=== PATIENT | female | born 1995 | race Caucasian/White ===

== ENCOUNTER 2022-05-04 16:05 | Inpatient (IN) | payer OTHER ==
[~2022-05-04] VITALS: Ht 162.6 cm; Wt 111.1 kg
[2022-05-04 16:39] LABS: BASOPHILS % (AUTO) 0.3 % (0.0-2.0); EOSINOPHILS # (AUTO) 0.1 K/uL (0-0.4); EOSINOPHILS % (AUTO) 1.3 % (0.0-4.0); HEMATOCRIT 32.8 % (36-48); HEMOGLOBIN 11.1 g/dL (12.0-16.0); LYMPHOCYTES # (AUTO) 2.4 K/uL (2.5-16.5); LYMPHOCYTES % (AUTO) 21.1 % (20.5-51.1); MEAN CORPUSCULAR HEMOGLOBIN 28 pg (27-31); MEAN CORPUSCULAR HGB CONC 34 g/dL (33-37); MEAN CORPUSCULAR VOLUME 83.7 fL (80-94); MONOCYTES # (AUTO) 0.7 K/uL (0.8-1.0); MONOCYTES % (AUTO) 6.3 % (1.7-9.3); NEUTROPHILS # (AUTO) 8.2 K/uL (1.8-7.7); PLATELET COUNT (AUTO) 352 K/uL (140-450); RED BLOOD CELL COUNT(AUTO) 3.92 MIL/uL (4.20-5.40); RED CELL DISTRIBUTION WIDTH 15.3 % (11.6-13.7); WHITE BLOOD COUNT (AUTO) 11.5 K/uL (4.8-10.8)
[2022-05-04 16:39] LABS: APPEARANCE,URINE CLEAR (CLEAR); BILIRUBIN,URINE NEGATIVE (NEGATIVE); BLOOD, URINE NEGATIVE (NEGATIVE); COLOR,URINE YELLOW (YELLOW); LEUKOCYTE ESTERASE ,URINE NEGATIVE (NEGATIVE); NITRITE, URINE NEGATIVE (NEGATIVE); UGLUCOSE NEGATIVE (NEGATIVE)
[2022-05-04] MEDS ORDERED: PRETAB PO (16:54)
[2022-05-04] MEDS ORDERED: ACET-10509 PO (16:54)
[2022-05-04 16:55] VITALS: BP 117/58
[2022-05-04] MEDS ORDERED: LACTATED RINGERS 500 ML IV ONE (17:20)
[2022-05-04 17:29] LABS: PROTHROMBIN TIME 9.9 secs (10.8-13.4)
[2022-05-04] MEDS: MORPHINE SULFATE 10 MG/ML VIAL IVP PRN ×2 (17:42→21:00)
[2022-05-04] MEDS: ONDANSETRON 4 MG/2 ML VIAL IVP PRN (17:42)
[2022-05-04] MEDS ORDERED: LACTATED RINGERS 1,000 ML IV ONE (17:55)
[2022-05-04] MEDS ORDERED: NIFEdipine 10 MG CAPLF PO ONE (18:20)
[2022-05-04] MEDS ORDERED: MAG SULF 2000 MG/WATER PREMIX 100 ML IV ONE (18:20)
[2022-05-04] MEDS ORDERED: BETAMETH ACET/BETAMETH NA PH 30 MG/5 ML VIAL IM ONE (18:29)
[2022-05-04] MEDS: LACTATED RINGERS 1,000 ML IV SCH (18:30)
[2022-05-04 18:36] LABS: ALBUMIN 2.5 g/dL (3.4-5.0); ANION GAP 12.9 (8-16); CARBON DIOXIDE 25.7 mmol/L (21-32); CREATININE 0.6 mg/dL (0.6-1.3); MAGNESIUM 1.4 mg/dL (1.8-2.4); POTASSIUM 3.6 mmol/L (3.5-5.1); TOTAL BILIRUBIN 0.1 mg/dL (0.0-1.0)
[2022-05-04] MEDS ORDERED: BETAMETH ACET/BETAMETH NA PH 30 MG/5 ML VIAL IM SCH ×2 (19:05→21:00)
[2022-05-04] MEDS: MAG SULF 20 GM/H2O PREMIX DRIP 500 ML IV PRN (20:20)
[2022-05-04] MEDS ORDERED: MORPHINE SULFATE 5 MG/ML VIAL IVP PRN (22:30)
[2022-05-05] MEDS ORDERED: ROPIVACAINE 0.2%/NS PREMIX 200 ML EPI ONE ×4 (00:10→22:36)
[2022-05-05] MEDS: LACTATED RINGERS 1,000 ML IV SCH ×3 (00:54→13:46)
[2022-05-05] MEDS ORDERED: ALUMINUM HYD/MAG/SIMETHICONE 30 ML UDC PO PRN (01:15)
[2022-05-05] MEDS ORDERED: ACETAMINOPHEN 325 MG TAB ONE (04:46)
[2022-05-05] MEDS: ACETAMINOPHEN 325 MG TAB PO PRN (05:19)
[2022-05-05] MEDS: MAG SULF 20 GM/H2O PREMIX DRIP 500 ML IV PRN ×2 (06:10→15:51)
--- NOTE | 2022-05-05 06:40 | NUR ---
PATIENT HAS BEEN SCREENED AND CATEGORIZED LOW NUTRITION RISK. PATIENT WILL BE SEEN WITHIN 7 DAYS OF ADMISSION. 05/04/22-05/11/[address]
[2022-05-05] MEDS ORDERED: fentaNYL citrate 0.05 MG/ML VIAL ONE (09:23)
[2022-05-05] MEDS: ONDANSETRON 4 MG/2 ML VIAL IVP PRN (13:45)
[2022-05-05] MEDS: NIFEdipine 10 MG CAPLF PO SCH ×2 (13:48→19:42)
[2022-05-06] MEDS: NIFEdipine 10 MG CAPLF PO SCH (01:41)
[2022-05-06] MEDS: MAG SULF 20 GM/H2O PREMIX DRIP 500 ML IV PRN (02:27)
[2022-05-06] MEDS: ACETAMINOPHEN 325 MG TAB PO PRN (06:56)
[2022-05-06] MEDS: LACTATED RINGERS 1,000 ML IV SCH ×3 (08:26→19:07)
[2022-05-06] MEDS ORDERED: ROPIVACAINE 0.2%/NS PREMIX 200 ML EPI ONE (13:34)
[2022-05-06] MEDS ORDERED: ROPIVACAINE 0.2%/NS PREMIX 200 ML EPI SCH (16:10)
[2022-05-06] MEDS ORDERED: OXYTOCIN 20 UNITS in LACTATED RINGERS 1,000 ML IV SCH (19:25)
[2022-05-07] MEDS: LACTATED RINGERS 1,000 ML IV SCH ×3 (04:00→21:07)
[2022-05-07] MEDS ORDERED: OXYTOCIN 20 UNITS/LR PREMIX 1,000 ML IV ONE (16:27)
[2022-05-07 22:33] LABS: BASOPHILS % (AUTO) 0.7 % (0.0-2.0); EOSINOPHILS % (AUTO) 0.7 % (0.0-4.0); HEMATOCRIT 25.2 % (36-48); HEMOGLOBIN 7.9 g/dL (12.0-16.0); LYMPHOCYTES # (AUTO) 1.9 K/uL (2.5-16.5); LYMPHOCYTES % (AUTO) 33.2 % (20.5-51.1); MEAN CORPUSCULAR HEMOGLOBIN 21 pg (27-31); MEAN CORPUSCULAR HGB CONC 32 g/dL (33-37); MEAN CORPUSCULAR VOLUME 66.3 fL (80-94); MONOCYTES # (AUTO) 0.2 K/uL (0.8-1.0); MONOCYTES % (AUTO) 4.3 % (1.7-9.3); NEUTROPHILS # (AUTO) 3.5 K/uL (1.8-7.7); NEUTROPHILS % (AUTO) 61.1 % (42.2-75.2); PLATELET COUNT (AUTO) 264 K/uL (140-450); WHITE BLOOD COUNT (AUTO) 5.7 K/uL (4.8-10.8)
[2022-05-08] MEDS ORDERED: MORPHINE SULFATE 10 MG/ML VIAL ONE (00:29)
[2022-05-08 00:34] VITALS: BP 129/80
[2022-05-08] MEDS: ONDANSETRON 4 MG/2 ML VIAL IVP PRN (00:34)
[2022-05-08] MEDS: LACTATED RINGERS 1,000 ML IV SCH (14:39)
[2022-05-08] MEDS ORDERED: OXYTOCIN 20 UNITS/LR PREMIX 1,000 ML IV ONE (20:29)
[2022-05-08] MEDS ORDERED: MEASLES, MUMPS, AND RUBELLA 1 VIAL SQVAC ONE (20:30)
[2022-05-08] MEDS ORDERED: OXYTOCIN 10 UNITS/ML VIAL IM PRN (20:30)
[2022-05-08] MEDS ORDERED: METHYLERGONOVINE 0.2 MG TAB PO PRN (20:30)
[2022-05-08] MEDS ORDERED: BENZOCAINE/MENTHOL 20%-0.5% 60 GM CAN TP PRN (20:30)
[2022-05-08] MEDS ORDERED: METHYLERGONOVINE 0.2 MG/ML AMP IM PRN (20:30)
[2022-05-09] MEDS: IBUPROFEN 800 MG TAB PO PRN ×3 (04:20→21:05)
[2022-05-09 09:16] LABS: HEMATOCRIT 28.9 % (36-48); HEMOGLOBIN 9.5 g/dL (12.0-16.0)
[2022-05-09] MEDS ORDERED: bisacodyL 5 MG TABEC PO PRN (12:45)
[2022-05-09] MEDS ORDERED: HYDROcodone/APAP 5/325 MG 1 TAB TAB PO PRN (21:10)
[2022-05-10] MEDS: IBUPROFEN 800 MG TAB PO SCH ×2 (03:15→09:10)
[2022-05-10] MEDS ORDERED: FERR325E14 PO (10:02)
[2022-05-10] MEDS ORDERED: IBUP-2213 PO (10:02)
[2022-05-10] MEDS ORDERED: DOCU-299 PO (10:02)
== END 2022-05-10 11:27 | disposition home or self-care (01) | DRG 560 ==
LOC: OBSVTOIN 16:05 → MLD 16:05 → MFCC 05-08 23:36
PROVIDERS: ADMIT Obstetrics & Gynecology; ATTEND Obstetrics & Gynecology
PROC: 10E0XZZ Delivery of Products of Conception, External Approach (ICD-10-PCS; principal; 2022-05-08)
PROC: 0HQ9XZZ Repair Perineum Skin, External Approach (ICD-10-PCS; 2022-05-08)
PROC: 3E0R3BZ Introduction of Anesthetic Agent into Spinal Canal, Percutaneous Approach (ICD-10-PCS; 2022-05-08)
PROC: 00HU33Z Insertion of Infusion Device into Spinal Canal, Percutaneous Approach (ICD-10-PCS; 2022-05-08)
DX: O60.14X0 Preterm labor third trimester with preterm delivery third trimester, not applicable or unspecified (principal); Z37.0 Single live birth; R71.0 Precipitous drop in hematocrit; O70.0 First degree perineal laceration during delivery; Z20.822 Contact with and (suspected) exposure to COVID-19; Z3A.35 35 weeks gestation of pregnancy
CPT/HCPCS: 36415; 51702; 59409; 76819; 80053; 81003; 83735; 85018; 85025; 85384; 85610; 85730; 86592; 86886; 86900; 86901; 87653-90; J0702; J2270; J2405; J2590; J2795; J3010; J3475; J7120; Q0092